=== PATIENT | female | born 1985 | race Caucasian/White ===

== ENCOUNTER 2020-10-26 12:19 | Emergency (ER) | payer MEDICAID ==
[~2020-10-26] VITALS: Ht 167.6 cm; Wt 136.0 kg
[2020-10-26] MEDS ORDERED: MECLIZINE 25MG TABLET PO ONE (12:45)
[2020-10-26] MEDS ORDERED: ONDANSETRON 4MG ODT PO ONE (12:45)
[2020-10-26] MEDS ORDERED: AMOX-494 MT (13:52)
[2020-10-26] MEDS ORDERED: CETI10CA2 MT (13:52)
[2020-10-26 13:58] LABS: CLARITY URINE CLEAR (CLEAR); COLOR URINE YELLOW (YELLOW); KETONES URINE NEGATIVE (NEGATIVE); LEUKOCYTE ESTERASE URINE 1+ (NEGATIVE); NITRITE URINE NEGATIVE (NEGATIVE); OCCULT BLOOD URINE TRACE (NEGATIVE); PH URINE 6.5 (4.5-8.0); PROTEIN URINE NEGATIVE (NEGATIVE); SPECIFIC GRAVITY URINE 1.011 (1.005-1.030); UROBILINOGEN URINE 0.2 E.U./dL (0.2-1.0)
[2020-10-26 14:10] VITALS: BP 142/72
== END 2020-10-26 14:11 | disposition home or self-care (01) ==
LOC: ER 12:19
DX: B34.9 Viral infection, unspecified (principal); H83.03 Labyrinthitis, bilateral; H83.2X3 Labyrinthine dysfunction, bilateral; H66.93 Otitis media, unspecified, bilateral; Z20.822 Contact with and (suspected) exposure to COVID-19
CPT/HCPCS: 81003; 81025; 99283; C9803; J8597; Q0162; U0003; U0005